=== PATIENT | female | born 1970 | race Caucasian/White ===

== ENCOUNTER 2019-05-07 20:54 | Emergency (ER) | payer OTHER ==
[~2019-05-07] VITALS: Ht 160 cm; Wt 64.9 kg
[~2019-05-07 20:54] MED LIST: BACTROBAN OINT22 GM TP; CEFTIN250 MG PO; KETO10TA2 PO; LEVSIN/SL0.125 MG SL; NEURONTIN600 MG; PROTONIX40 MG PO
== END 2019-05-08 01:19 | disposition home or self-care (01) ==
LOC: ER 20:54
DX: I16.1 Hypertensive emergency (principal); I10 Essential (primary) hypertension